=== PATIENT | male | born 1960 ===

== ENCOUNTER 2023-11-23 16:03 | Emergency (ER) | payer BC, SELFPAY ==
[2023-11-23 16:10] VITALS: BP 155/95; BMI 37.3
[2023-11-23] MEDS: BACTRIM DS 800 MG/160 MG 1 TABLET PO (19:02)
--- NOTE | 2023-11-23 23:50 | ED.GENMED ---
History of Present Illness
General
Chief Complaint: Skin Problem
Source: patient
Exam Limitations: none
Time Seen by Provider: 11/23/23 18:33
Nursing documentation reviewed up to this point in time: agreed with
Travel History
Have you had any contact with someone who has COVID-19?: No
Do you have any symptoms of coronavirus? Fever > 100 degrees, chills, cough, shortness of breath, sore throat, loss of taste or smell, muscle aches, or headache?: No
History of Present Illness
History of Present Illness:
patient with undrained paronychia to left 4th finger. Symptoms started 2 weeks ago. he was seen by UC and given antibiotic but abscess was not drained.Placed on Keflex 500mg qid without improvement. Pain and swelling continue. Denies
fever/chills. Full ROM to finger. Brought self to ED for eval.
Past History
Past History
ED Past Medical History: None
ED Past Surgical History: None
Review of Systems
Review of Systems
Allergies reviewed?: Yes
All Other Systems: ROS reviewed and negative except as documented in HPI and ROS
Constitutional: Reports no symptoms
Musculoskeletal: Reports no symptoms
Skin: Reports other (paronychia left distal 4th finger)
Neurological: Reports no symptoms
Psychiatric: Reports no symptoms
Phy Exam
General Physical Exam
General Presentation: well appearing and no apparent distress
General age: appears stated age
General Skin: warm and dry
General Habitus: normal
General Mental: alert
Musculoskeletal Exam
Musculoskeletal Exam: full ROM and neuro vasc intact
Skin Exam
Skin Exam: normal color, warm/dry and other (Left 4th finger paronychia)
Psychiatric Exam
Psychiatric Exam: normal mood/affect
Course
Orders/Labs/Results
Orders:
Orders
11/23/23 18:56
Sulfamethox./Trimethoprim Ds [Bactrim Ds 800 mg/160 mg] 1 tablet PO NOW STA
11/23/23 18:58
Wound Culture [Wound/Abscess/Other Culture] Urgent
TRICIA Source: Finger
Specimen Description: Left
Date Specimen was Collected: 11/23/23
Time Specimen was Collected: 18:57
Vital Signs
Initial and Last Documented VS:
Initial Vital Signs
Temp Pulse Resp BP Pulse Ox
98.5 F 110 20 155/95 96
11/23/23 16:10 11/23/23 16:10 11/23/23 16:10 11/23/23 16:10 11/23/23 16:10
Last Documented Vital Signs
Temp Pulse Resp BP Pulse Ox
98.5 F 110 20 155/95 96
11/23/23 16:10 11/23/23 16:10 11/23/23 16:10 11/23/23 16:10 11/23/23 16:10
Procedures
Incision/Drainage/Joint Aspiration
Paronychia Left 4th Finger:
Anethesia: 1% Lidocaine
Type of procedure: incise and drain
Nature of site: abscess
Description of abscess: less than 3cm
How much fluid was obtained?: large amount
Fluid description: purulent
Treatment: left open for drainage
*Critical Care Note
Total Time (30-74mins, 75-104mins- exclusive of procedures): Not Applicable
Update Note
Update Note:
Paronychia drained. Culture obtained and sent. WIll continue Keflex qid, add Bactrim DS bid and warm soaks 4-5 times daily. He was given instructions on s/s to return to ED and he is agreeable to plan.
ED Attending Note
-
Portions of this chart may have been created with voice recognition software.� Occasional wrong word or��sound alike� substitutions may have occurred due to the inherent limitations of voice recognition software.
Discharge Plan
Departure
Patient Disposition: Home (Routine Discharge)
Date of Disposition: 11/23/23
Time of Disposition: 18:57
Patient with high blood pressure during this ER visit?: No
Condition: Good
Covid-19: Not Applicable
Discharge Problem:
Paronychia
Instructions: Paronychia ED
Prescriptions:
New
sulfamethoxazole-trimethoprim [Bactrim DS] 800-160 mg tablet
1 tab PO Q12H Qty: 20 0RF
Referrals:
Geremias Sutton DO [Family Provider] -
Activity Restrictions/Additional Instructions:
Warm soaks to your finger 15-20 minutes at a time, 4-5 times daily. Return to the emergency department immediately for fever/chills, increasing pain/redness/swelling to your finger or for any further concerns.
Interventions
Interventions:
*Risk Screen - Suicide Last Done: 11/23/23 16:10
*General Assessment Last Done: 11/23/23 17:05
*Neglect/Abuse Screening Last Done: 11/23/23 16:10
ED- Fall Risk Assessment Last Done: 11/23/23 16:10
*ED COVID-19 Vaccine History Last Done: 11/23/23 17:05
*Nursing Disposition Last Done: 11/23/23 19:12
ED-Skin Assessment Last Done: 11/23/23 17:04
Discharge Date and Time
Discharge Date/Time: 11/23/23 19:15
Print Language: UKRAINIAN
Skin Exam
Abscess
Paronychia left 4th finger:
Description of abscess: fluctuant
Surrounding skin:: inflammed at abscess site
== END 2023-11-23 19:15 | disposition home or self-care (01) ==
LOC: EMR 16:03
PROVIDERS: EMERGENCY PHYSICIAN Emergency Medicine; FAMILY PHYSICIAN Family Medicine
DX: L03.012 Cellulitis of left finger (principal)
CPT/HCPCS: 99283; 26010; 87070; 87077; 87186; 87205